=== PATIENT | male | born 1950 | race Caucasian/White ===

== ENCOUNTER → 2020-02-04 | Outpatient (CLI) | payer MEDICARE ==
[~2020-02-04] MED LIST: AMIO200T42 PO; APIX5TAB PO; ASCO500T8 PO; ATOR-2 PO; ATOR80TA PO; CARV3.122 PO; CARV6.2512 PO; CLOP75TA52 PO; DIGO125T85 PO; FURO-92 PO; GLIP10TA13 PO; LISI2.5T PO; METF500T17 PO; METO50TA82 PO; MULT-449 PO; SIMV40TA20 PO; SPIR25TA5 PO; TICA90TA PO; UBID50TA3 PO; Vit E; fish oil PO; vitamin C; vitamin D PO
[2020-02-04 09:55] LABS: ALBUMIN 3.7 g/dL (3.4-5.0); ANION GAP 6 mmol/L (5-15); CALCIUM 9.7 mg/dL (8.5-10.1); CHLORIDE 103 mmol/L (98-107)
[2020-02-04 10:12] LABS: ALANINE AMINOTRANSFERASE 66 U/L (12-78); ALKALINE PHOSPHATASE 92 U/L (45-117); BILIRUBIN,TOTAL 1.1 mg/dL (0.2-1.0); CREATININE 1.63 mg/dL (0.7-1.3)
== END | disposition home or self-care (01) ==
LOC: STAR 08:32
PROVIDERS: ATTEND Internal Medicine Gastroenterology
DX: Z01.818 Encounter for other preprocedural examination (principal); K92.1 Melena
CPT/HCPCS: 36415; 80053; 93005

== ENCOUNTER → 2020-02-08 | Outpatient (CLI) | payer MEDICARE | END | disposition home or self-care (01) | LOC: STAR 12:36 | PROVIDERS: ATTEND Anesthesiology | DX: Z01.812 Encounter for preprocedural laboratory examination (principal); Z20.828 Contact with and (suspected) exposure to other viral communicable diseases | CPT/HCPCS: 36415; 87635 ==

== ENCOUNTER 2020-02-10 06:00 | Day surgery (SDC) | payer MEDICARE ==
[~2020-02-10] VITALS: Ht 172.7 cm; Wt 93.0 kg
[2020-02-10 06:08] VITALS: BP 128/83
[2020-02-10] MEDS ORDERED: LACTATED RINGERS 1,000 ML IV SCH (06:30)
[2020-02-10] MEDS ORDERED: CHLORHEXIDINE 15 ML UDC MM ONE (06:30)
[2020-02-10] MEDS ORDERED: PROPOFOL 10 MG/ML, 20ML ONE (07:15)
[2020-02-10] MEDS ORDERED: DEXAMETHASONE 4 MG/ML, 1ML ONE (07:15)
[2020-02-10] MEDS ORDERED: LIDOCAINE-MPF 2% ,5ML ONE (07:15)
[2020-02-10] MEDS ORDERED: MIDAZOLAM 1 MG/ML, 2ML ONE (07:15)
[2020-02-10] MEDS ORDERED: ROCURONIUM 10 MG/ML,10ML ONE (07:15)
[2020-02-10] MEDS ORDERED: GLYCOPYRROLATE 0.2MG/1ML, 5ML ONE (07:15)
[2020-02-10] MEDS ORDERED: METHOCARBAMOL 1,000 MG in DEXTROSE 5% 100 ML IV PRN (07:30)
[2020-02-10] MEDS ORDERED: MIDAZOLAM 1 MG/ML, 2ML IV PRN (07:30)
[2020-02-10] MEDS ORDERED: OXYcodone 5 MG/5 ML ORAL.SOL UDC PO PRN (07:30)
[2020-02-10] MEDS ORDERED: HALOPERIDOL 5 MG/ML IV PRN (07:30)
[2020-02-10] MEDS ORDERED: ONDANSETRON 2MG/ML, 2ML IVPush PRN (07:30)
[2020-02-10] MEDS ORDERED: EPHEDRINE 50 MG/ML, 1ML IVPush PRN (07:30)
[2020-02-10] MEDS ORDERED: hydrALAzine 20 MG/ML, 1ML IV PRN (07:30)
[2020-02-10] MEDS ORDERED: MEPERIDINE/PF 25MG/0.5ML IVPush PRN (07:30)
[2020-02-10] MEDS ORDERED: LABETALOL 5MG/ML, 20ML IV PRN (07:30)
[2020-02-10] MEDS ORDERED: METOCLOPRAMIDE 5 MG/ML, 2ML IVPush PRN (07:30)
[2020-02-10] MEDS ORDERED: EPHEDRINE 50 MG/ML, 1ML IM PRN (07:30)
[2020-02-10] MEDS ORDERED: HYDROcodone/APAP 7.5-325MG/15ML UDC PO PRN (07:30)
[2020-02-10] MEDS ORDERED: ALBUTEROL/IPRATROPIUM 2.5MG/0.5MG, 3 ML NPPB PRN (07:30)
[2020-02-10] MEDS ORDERED: LORazepam 2 MG/ML, 1ML IVPush PRN (07:30)
[2020-02-10] MEDS ORDERED: DIPHENHYDRAMINE 50 MG/ML, 1ML IVPush PRN (07:30)
[2020-02-10] MEDS ORDERED: FENTANYL PF 100 MCG/2ML IV PRN (07:30)
[2020-02-10] MEDS ORDERED: DIAZEPAM 5 MG/ML, 2ML IVPush PRN (07:30)
[2020-02-10] MEDS ORDERED: HYDROmorphone 1 MG/ML, 1ML INJ IVPush PRN (07:30)
[2020-02-10] MEDS ORDERED: LABETALOL 5MG/ML, 20ML ONE (07:55)
== END 2020-02-10 09:45 | disposition home or self-care (01) ==
LOC: OUT 06:00
PROVIDERS: ATTEND Internal Medicine Gastroenterology
DX: R19.5 Other fecal abnormalities (principal); Z20.828 Contact with and (suspected) exposure to other viral communicable diseases; D12.4 Benign neoplasm of descending colon; D12.3 Benign neoplasm of transverse colon; K57.30 Diverticulosis of large intestine without perforation or abscess without bleeding; I10 Essential (primary) hypertension; E11.9 Type 2 diabetes mellitus without complications; I25.10 Atherosclerotic heart disease of native coronary artery without angina pectoris; Z79.01 Long term (current) use of anticoagulants; Z79.84 Long term (current) use of oral hypoglycemic drugs; Z79.899 Other long term (current) drug therapy; Z88.0 Allergy status to penicillin
CPT/HCPCS: 45385; 82962; 87635; 88305; J1100; J2250; J2704; J3475; J7120

== ENCOUNTER 2020-02-11 23:46 | Inpatient (IN) | payer MEDICARE ==
[~2020-02-11] VITALS: Ht 172.7 cm; Wt 93.0 kg
[2020-02-12] MEDS ORDERED: SODIUM CHLORIDE FLUSH 10ML SYR IVF ONE
[2020-02-12 00:13] LABS: BASOPHILS % (AUTO) 1 % (0-1); EOSINOPHILS % (AUTO) 0 % (1-7); LYMPHOCYTES % (AUTO) 14 % (22-44); MEAN CORPUSCULAR HGB CONC 33.7 g/dL (33.2-36.2); MEAN PLATELET VOLUME 9.2 fL (7.4-10.4); MONOCYTES % (AUTO) 11 % (2-9); NEUTROPHILS % (AUTO) 75 % (42-75); PLATELET COUNT 290 x10^3/uL (130-400); RED BLOOD COUNT 4.35 x10^6/uL (4.38-5.82); RED CELL DISTRIBUTION WIDTH 14.7 % (9.4-14.8)
--- NOTE | 2020-02-12 00:15 | NUR ---
Report given to OR.
--- NOTE | 2020-02-12 00:25 | NUR ---
Pt placed in gown. Belongings given to . 20G PIV started when OR picked up pt for procedure. VSS.
[2020-02-12 00:26] LABS: MD NO
[2020-02-12 00:28] LABS: ALANINE AMINOTRANSFERASE 61 U/L (12-78); ANION GAP 11 mmol/L (5-15); CALCIUM 9.6 mg/dL (8.5-10.1); CHLORIDE 102 mmol/L (98-107); CREATININE 2.37 mg/dL (0.7-1.3)
[2020-02-12 00:30] LABS: ALKALINE PHOSPHATASE 93 U/L (45-117); BILIRUBIN,TOTAL 0.8 mg/dL (0.2-1.0); TOTAL PROTEIN 8.3 g/dL (6.4-8.2)
[2020-02-12] MEDS ORDERED: ONDANSETRON ODT 4 MG PO PRN (00:30)
[2020-02-12 00:36] LABS: INTERNATIONAL NORMALIZED RATIO 0.96 (0.93-1.1); PROTHROMBIN TIME 10.2 Seconds (9.6-11.5)
[2020-02-12] MEDS ORDERED: ONDANSETRON 2MG/ML, 2ML ONE (02:07)
[2020-02-12] MEDS ORDERED: ONDANSETRON 2MG/ML, 2ML IVPush PRN (02:30)
[2020-02-12 03:22] VITALS: BP 124/75
[2020-02-12 03:36] VITALS: BP 124/75
[2020-02-12 06:37] LABS: BASOPHILS % (AUTO) 0 % (0-1); EOSINOPHILS % (AUTO) 0 % (1-7); LYMPHOCYTES % (AUTO) 8 % (22-44); MEAN CORPUSCULAR HEMOGLOBIN 31.8 pg (27.5-34.5); MEAN CORPUSCULAR HGB CONC 33.7 g/dL (33.2-36.2); MEAN PLATELET VOLUME 9.1 fL (7.4-10.4); MONOCYTES % (AUTO) 7 % (2-9); NEUTROPHILS % (AUTO) 85 % (42-75); PLATELET COUNT 234 x10^3/uL (130-400); RED BLOOD COUNT 3.72 x10^6/uL (4.38-5.82); RED CELL DISTRIBUTION WIDTH 14.6 % (9.4-14.8)
[2020-02-12 06:50] LABS: MD NO
[2020-02-12] MEDS ORDERED: EPINEPHRINE SYRINGE 0.1 MG/ML, 10ML ONE (07:00)
[2020-02-12 07:56] VITALS: BP 103/66
[2020-02-12] MEDS: AMIODARONE 200 MG TABLET PO SCH (08:51)
[2020-02-12] MEDS: ASCORBIC ACID 500 MG TABLET PO SCH (08:53)
[2020-02-12] MEDS: METOPROLOL TARTRATE 50 MG TAB PO SCH ×2 (08:53→20:48)
[2020-02-12] MEDS: MULTIVITAMIN 1 TABLET PO SCH (08:53)
[2020-02-12] MEDS: SODIUM CHLORIDE FLUSH 10ML SYR IVF SCH ×2 (08:55→20:48)
[2020-02-12] MEDS ORDERED: DIGOXIN 0.125 MG TABLET PO SCH (09:00)
[2020-02-12] MEDS ORDERED: SPIRONOLACTONE 25 MG TABLET PO SCH (09:00)
[2020-02-12] MEDS ORDERED: FUROSEMIDE 40 MG TABLET PO SCH (09:00)
[2020-02-12 12:05] LABS: ANION GAP 10 mmol/L (5-15); CALCIUM 9.4 mg/dL (8.5-10.1); CHLORIDE 104 mmol/L (98-107); CREATININE 1.94 mg/dL (0.7-1.3)
[2020-02-12] MEDS: INSULIN LISPRO 100 UNITS/ML, PEN SQ-INSULIN SCH ×3 (12:30→21:00)
[2020-02-12 14:31] VITALS: BP 118/71
[2020-02-12] MEDS ORDERED: ROCURONIUM 10MG/ML,5ML ONE (16:18)
[2020-02-12] MEDS ORDERED: SUCCINYLCHOLINE 20 MG/ML, 10ML ONE (16:18)
[2020-02-12] MEDS ORDERED: PROPOFOL 10 MG/ML, 20ML ONE (16:18)
[2020-02-12 20:46] VITALS: BP 109/71
[2020-02-12] MEDS ORDERED: ATORVASTATIN 80 MG TABLET PO SCH (21:00)
[2020-02-12] MEDS ORDERED: FLU VACC QS2020-21(6MOS UP)/PF 60MCG/0.5 ML SYR IM ONE (22:20)
[2020-02-13 01:50] VITALS: BP 115/68
[2020-02-13 06:31] LABS: BASOPHILS % (AUTO) 1 % (0-1); EOSINOPHILS % (AUTO) 2 % (1-7); LYMPHOCYTES % (AUTO) 27 % (22-44); MEAN CORPUSCULAR HEMOGLOBIN 31.6 pg (27.5-34.5); MEAN CORPUSCULAR HGB CONC 33.2 g/dL (33.2-36.2); MEAN PLATELET VOLUME 9.1 fL (7.4-10.4); MONOCYTES % (AUTO) 11 % (2-9); NEUTROPHILS % (AUTO) 59 % (42-75); PLATELET COUNT 216 x10^3/uL (130-400); RED CELL DISTRIBUTION WIDTH 14.5 % (9.4-14.8)
[2020-02-13 06:33] LABS: ANION GAP 3 mmol/L (5-15); CALCIUM 9.3 mg/dL (8.5-10.1); CHLORIDE 107 mmol/L (98-107); CREATININE 1.24 mg/dL (0.7-1.3)
[2020-02-13 06:42] LABS: MD NO
[2020-02-13 07:36] VITALS: BP 106/67
[2020-02-13] MEDS: METOPROLOL TARTRATE 50 MG TAB PO SCH (08:51)
[2020-02-13] MEDS: MULTIVITAMIN 1 TABLET PO SCH (08:51)
[2020-02-13] MEDS: AMIODARONE 200 MG TABLET PO SCH (08:51)
[2020-02-13] MEDS: ASCORBIC ACID 500 MG TABLET PO SCH (08:51)
[2020-02-13] MEDS: SODIUM CHLORIDE FLUSH 10ML SYR IVF SCH (08:54)
[2020-02-13] MEDS: INSULIN LISPRO 100 UNITS/ML, PEN SQ-INSULIN SCH ×2 (08:54→11:35)
[2020-02-13] MEDS ORDERED: DIGOXIN 0.125 MG TABLET PO SCH (09:00)
[2020-02-13 13:55] VITALS: BP 109/76
== END 2020-02-13 15:00 | disposition home or self-care (01) | DRG 919 ==
LOC: ED 02-12 00:06 → EDIP 02-12 00:21 → 3WST 02-12 02:55 → DCLOUNGE 02-13 14:50
PROVIDERS: ADMIT Internal Medicine; ATTEND Internal Medicine
PROC: 0W3P8ZZ Control Bleeding in Gastrointestinal Tract, Via Natural or Artificial Opening Endoscopic (ICD-10-PCS; principal; 2020-02-12 01:30)
DX: K91.840 Postprocedural hemorrhage of a digestive system organ or structure following a digestive system procedure (principal); N17.0 Acute kidney failure with tubular necrosis; K62.5 Hemorrhage of anus and rectum; D68.59 Other primary thrombophilia; I48.20 Chronic atrial fibrillation, unspecified; E11.22 Type 2 diabetes mellitus with diabetic chronic kidney disease; I12.9 Hypertensive chronic kidney disease with stage 1 through stage 4 chronic kidney disease, or unspecified chronic kidney disease; I25.10 Atherosclerotic heart disease of native coronary artery without angina pectoris; I25.5 Ischemic cardiomyopathy; I35.0 Nonrheumatic aortic (valve) stenosis; I45.10 Unspecified right bundle-branch block; Y83.8 Other surgical procedures as the cause of abnormal reaction of the patient, or of later complication, without mention of misadventure at the time of the procedure; K57.30 Diverticulosis of large intestine without perforation or abscess without bleeding; N18.9 Chronic kidney disease, unspecified; K63.5 Polyp of colon; I25.2 Old myocardial infarction; Z79.01 Long term (current) use of anticoagulants; Z79.02 Long term (current) use of antithrombotics/antiplatelets; Z87.891 Personal history of nicotine dependence; Z95.1 Presence of aortocoronary bypass graft; Z95.2 Presence of prosthetic heart valve; Z95.5 Presence of coronary angioplasty implant and graft; Y92.098 Other place in other non-institutional residence as the place of occurrence of the external cause; Z79.84 Long term (current) use of oral hypoglycemic drugs
CPT/HCPCS: 36415; 80048; 80053; 82962; 85025; 85610; 85730; 90686; 93005; 99285; G0378; J2405; J2704; J0330